=== PATIENT | female | born 1975 | race African-American/Black ===

== ENCOUNTER → 2021-02-03 | Outpatient (CLI) | payer BC | LOC: COL.RAD 06:44 | DX: R74.01 Elevation of levels of liver transaminase levels (principal); F10.20 Alcohol dependence, uncomplicated ==

== ENCOUNTER → 2022-03-15 | Outpatient (CLI) | payer BC ==
[~2022-03-15] MED LIST: CARAFATE 1GM1 G PO; PRENATAL FORMU1 EAC3 PO; PROTONIX 40MG T40 MG PO; TOPROL XL 25MG25 MG PO; ZOFRAN ODT4 MG PO
[2022-03-15 10:09] LABS: BASO # 0.1 K/mm3 (0.0-0.2); BASO % 0.8 % (0.0-2.0); EOS % 0.3 % (0.0-4.0); GRAN # 5.6 K/mm3 (1.4-6.5); GRAN % 76.8 % (42.2-75.2); HEMOGLOBIN 12.4 g/dl (12.5-16.0); LYMPH % 13.7 % (20.0-51.0); MEAN CELL VOLUME 92 fl (80.0-100.0); MEAN CORPUSCULAR HEMOGLOBIN 32 pg (27-31); MEAN CORPUSCULAR HGB CONC 35 g/dl (33.0-37.0); MEAN PLATELET VOLUME 10.9 fl (7.4-10.4); MONO # 0.6 K/mm3 (0.1-0.6); MONO % 8.1 % (1.7-9.3); PLATELET COUNT 127 K/mm3 (130-400); RED BLOOD COUNT 3.92 M/mm3 (4.10-5.30); REDCELL DISTRIBUTION WIDTH-CV 21.7 % (11.5-14.5)
[2022-03-15 10:14] LABS: HEMATOCRIT 35.9 % (37.0-47.0)
[2022-03-15 10:20] LABS: MUCOUS Present (NOT PRESENT); SQUAMOUS EPITHELIAL 0-2 /hpf (0-10); URINE BACTERIA Many /hpf (NONE SEEN); URINE RBC 0-2 /hpf (0-2)
[2022-03-15 10:21] LABS: URINE APPEARANCE Hazy (CLEAR/HAZY); URINE BLOOD Negative (NEGATIVE); URINE COLOR Yellow (YELLOW); URINE GLUCOSE Negative (NEGATIVE); URINE KETONE 1+ (NEGATIVE); URINE NITRATE Positive (NEGATIVE); URINE PROTEIN(semi-quant) 1+ (NEGATIVE); URINE UROBILINOGEN 0.2 E.U/dL (0.2-1.0)
[2022-03-15 10:24] LABS: COLLECTION METHOD CLEAN CATCH
[2022-03-15 10:25] LABS: ALBUMIN 3.1 gm/dL (3.5-5.0); BILIRUBIN,TOTAL 3.6 mg/dL (0.2-1.2); C-REACTIVE PROTEIN 2.86 mg/dL (0.00-0.50); CREATININE, serum 0.64 mg/dL (0.57-1.11); PHOSPHOROUS 2.3 mg/dL (2.3-4.7); POTASSIUM 3.2 mmol/L (3.5-4.5); TOTAL PROTEIN 7.7 gm/dL (6.2-8.1)
[2022-03-15 10:47] LABS: BILIRUBIN,DIRECT 2.4 mg/dL (0.0-0.5)
[2022-03-15 11:03] LABS: ERYTHROCYTE SEDIMENTATION RATE 14 mm/hr (0-20)
== END ==
LOC: COL.LAB 09:27
PROVIDERS: Family Medicine
DX: E87.6 Hypokalemia (principal); R10.9 Unspecified abdominal pain